=== PATIENT | male | born 1960 | race Caucasian/White ===

== ENCOUNTER 2018-07-24 17:05 | Emergency (ER) | payer OTHER, SELFPAY ==
[2018-07-24 17:07] VITALS: BP 126/73; PULSE 64; RESP 18; TEMP 36.3; O2SAT 98; BMI 24.3
[2018-07-24 17:13] VITALS: BP 126/73; PULSE 64; RESP 18; TEMP 36.3; O2SAT 98; BMI 24.3
--- NOTE | 2018-07-24 17:45 | DI.RAD.S_ITS ---
PROCEDURE: XR HIP W PEL IF DONE RT 2V INDICATIONS: fall GLF TECHNIQUE: AP pelvis with lateral view(s) of the right hip(s). COMPARISON: [facility], , SACRUM-COCCYX MIN 2 VIEWS, 08/26/2015, 12:09. [facility], , PELVIS 1 OR 2 VIEWS, 12/22/2013, 15:24. FINDINGS: Bones: No fractures or dislocations. Pelvic ring appears intact. No suspicious bony lesions. Soft tissues: The visualized bowel gas pattern is normal. No suspicious soft tissue calcifications. IMPRESSION: No acute fracture. No osseous lesion. If clinical suspicion and/or symptoms persist, further assessment with repeat plainfilms, or advanced imaging (e.g., CT, MRI, or bone scan) may be helpful for further assessment. Dictated by: Betty Gonzalez M.D. on 07/24/2018 at 18:28 Approved by: Betty Gonzalez M.D. on 07/24/2018 at 18:28
--- NOTE | 2018-07-24 17:49 | PC.NURSE ---
Patient ROM and sensation intact. Patient able to stand but cautious to bear weight. No obvious bruising or swelling noted
--- NOTE | 2018-07-24 18:18 | ED_ITS ---
HPI - Extremity Injury (Lower) <CHEYANNE Rees - Last Filed: 07/24/18 20:56> General Chief Complaint: Extremity Injury, Lower Stated Complaint: right side buttock pain from running Time Seen by Provider: 07/24/18 17:20 Source: patient and family Mode of arrival: ambulatory Limitations: no limitations History of Present Illness HPI Narrative: Patient presents with chief complaint of right hip and buttock pain while he was running this morning. He states this happened a while ago as well and he does some bruising in his hamstring but recovered. He denies any neck head or back pain. He states he did not hit anything else but more ?rolled ? when he had a sudden pain. He complains of sudden instability in his hip. He denies any numbness or tingling. Related Data Previous Rx's Medication Instructions Recorded polymyxin B sulf-trimethoprim 0 TOPICAL SEE INSTRUCTIONS #1 bot 02/01/17 [Polytrim] Allergies Allergy/AdvReac Type Severity Reaction Status Date / Time No Known Drug Allergies Allergy Verified 07/24/18 17:13 Review of Systems <RUFINO Rees - Last Filed: 07/24/18 20:56> Review of Systems GENERAL: Denies chills, fatigue, malaise, fever, sweats. HEENT: Denies sinus pain, ear pain, sore throat, difficulty swallowing, dizziness. RESPIRATORY: Denies dyspnea, cough, wheezing, hemoptysis, sputum. CARDIOVASCULAR: Denies chest pain, palpitations, orthopnea, edema, GASTROINTESTINAL: Denies nausea, vomiting, abdominal pain, diarrhea, constipation, melena. : Denies dysuria, frequency, incontinence, hematuria, urinary retention. MUSCULOSKELETAL: See HPI SKIN: Denies rash, skin lesions, or other NEUROLOGIC: Denies weakness, headache, numbness, change in speech, confusion, seizures, incoordination. PSYCHIATRIC: No concerning psychosocial issues. 12 point review of systems is negative except for those stated above Exam <CHEYANNE Rees - Last Filed: 07/24/18 20:56> Narrative Exam Narrative: GENERAL: This is a well-nourished, well-developed patient, in no acute distress HEAD: Atraumatic. Normocephalic. No temporal or scalp tenderness. EYES: Pupils equal round and reactive. Extraocular motions intact. No scleral icterus. No injection or drainage. ENT: Nose without bleeding, purulent drainage or septal hematoma. Throat without erythema, tonsillar hypertrophy or exudate. Uvula midline. Airway patent. NECK: Trachea midline. No JVD or lymphadenopathy. Supple, nontender, no meningeal signs. CARDIOVASCULAR: Regular rate and rhythm without murmurs, gallops, or rubs. RESPIRATORY: Clear to auscultation. Breath sounds equal bilaterally. No wheezes , rales, or rhonchi. GASTROINTESTINAL: Abdomen soft, non-tender, nondistended. No hepato-splenomegaly , or palpable masses. No guarding. EXTREMITIES: Strength is equal bilaterally lower extremities. Positive pedal pulses lower extremities. Right quad and hamstring muscles intact. No pain to palpation of right lower extremity. No palpable mass noted right leg. 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 He is able to pronate and supinate his right hip as well as hyperextend right hip. BACK: Nontender without deformity or crepitance. No flank tenderness. NEURO: AOx3. Stable gait. SKIN: No rash or erythema. No erythema, ecchymosis contusion or wound noted on hips or right leg. Initial Vital Signs Initial Vital Signs: Vital Signs Temperature 97.3 F L 07/24/18 17:07 Pulse Rate 64 07/24/18 17:07 Respiratory Rate 18 07/24/18 17:07 Blood Pressure 126/73 07/24/18 17:07 Pulse Oximetry 98 07/24/18 17:07 <Darren Cabello DO - Last Filed: 07/28/18 05:52> Initial Vital Signs Initial Vital Signs: Vital Signs Temperature 97.3 F L 07/24/18 17:07 Pulse Rate 64 07/24/18 17:07 Respiratory Rate 18 07/24/18 17:07 Blood Pressure 126/73 07/24/18 17:07 Pulse Oximetry 98 07/24/18 17:07 Course <CHEYANNE Rees - Last Filed: 07/24/18 20:56> Orders Ordered: ED Orders 07/24/18 17:45 XR hip w pel if done RT 2V Stat Vital Signs - 8 hr 07/24/18 17:07 07/24/18 17:13 Temperature 97.3 F L 97.3 F L Pulse Rate 64 64 Respiratory Rate 18 18 Blood Pressure 126/73 126/73 Pulse Oximetry 98 98 <Darren Cabello DO - Last Filed: 07/28/18 05:52> Orders Ordered: ED Orders 07/24/18 17:45 XR hip w pel if done RT 2V Stat Vital Signs - 8 hr 07/24/18 17:07 07/24/18 17:13 Temperature 97.3 F L 97.3 F L Pulse Rate 64 64 Respiratory Rate 18 18 Blood Pressure 126/73 126/73 Pulse Oximetry 98 98 MDM - Extremity Injury (Lower) <CHEYANNE Rees - Last Filed: 07/24/18 20:56> Imaging Data hip xray : Radiologist's impression: [address] [address] XRay Report Signed Patient: Anselmo Norris HMR#: [id number] : 1960Acct:[id number] Age/Sex: 58 / MDate of Service: 07/24/18 Loc: ED Accession Number: [id number] Procedure: XR hip w pel if done RT 2V Ordering Provider: Elizabeth Abreu PROCEDURE: XR HIP W PEL IF DONE RT 2V INDICATIONS: fall GLF TECHNIQUE: AP pelvis with lateral view(s) of the right hip(s). COMPARISON: [facility], , SACRUM-COCCYX MIN 2 VIEWS, 08/26/2015, 12:09. [facility], , PELVIS 1 OR 2 VIEWS, 12/22/2013, 15:24. FINDINGS: Bones: No fractures or dislocations. Pelvic ring appears intact. No suspicious bony lesions. Soft tissues: The visualized bowel gas pattern is normal. No suspicious soft tissue calcifications. IMPRESSION: No acute fracture. No osseous lesion. If clinical suspicion and/or symptoms persist, further assessment with repeat plainfilms, or advanced imaging (e.g., CT, MRI, or bone scan) may be helpful for further assessment. Dictated by: Betty Gonzalez M.D. on 07/24/2018 at 18:28 Approved by: Betty Gonzalez M.D. on 07/24/2018 at 18:28 [facility] Narrative Medical decision making narrative: Patient presents with chief complaint of transient right hip pain and instability upon running today. He had a negative x-ray and has an overall benign exam. He was able to ambulate around the emergency department after evaluation negative x-ray. I discussed follow up with primary care given contact information for [facility] in case he would like to follow up with them. Patient has no questions or concerns upon discharge. Steadily ambulated out of the emergency department. Discharge Plan Departure Patient Disposition: Home Clinical Impression: Acute hip pain Discharge Date/Time: 07/24/18 19:22 Interventions: ED Discharge Assessment Last Done: 07/24/18 19:21 Instructions: How To Perform RICE (Rest, Ice, Compress, Elevate), DI for Hip Pain Activity Restrictions/Additional Instructions: Your hip x-rays came back normal today. Range of motion is good and you are stable on your feet. Please follow-up with primary care provider. In the meantime please take [id number] pain medications as needed and able. Please rest and apply ice. I have given you contact information for orthopedics if you choose to follow up with them. Prescriptions: No Action polymyxin B sulf-trimethoprim [Polytrim] 10 ML drops Topical SEE INSTRUCTIONS Qty: 1 RF: 0 Referrals: [facility] [Outside] Adalberto Fortune MD [Primary Care Provider] - <Darren Cabello DO - Last Filed: 07/28/18 05:52> Cosign ED Attending Timo Attestation: I was immediately available in the department for consultation. Documentation has been reviewed. I agree with assessment and plan.
--- NOTE | 2018-07-24 19:05 | PC.NURSE ---
Patient ambulated able to bear weight. Tolerated well.
== END 2018-07-24 19:22 | disposition home or self-care (01) ==
PROVIDERS: Emergency Provider Nurse Practitioner Family; Family Provider Family Medicine; PCP Family Medicine
DX: M25.551 Pain in right hip (principal)
CPT/HCPCS: 73502; 99282; 99283

== ENCOUNTER → 2019-01-06 07:02 | Outpatient (CLI) | payer OTHER, SELFPAY ==
[2019-01-06 09:09] LABS: Alanine Aminotransferase 44 IU/L (21-72); Albumin 4.3 g/dL (3.5-5.0); Albumin Globulin Ratio 1.5 (1.0-2.8); Alkaline Phosphatase 54 U/L (38-126); Aspartate Aminotransferase 32 IU/L (17-59); BUN Creatinine Ratio 22.2 (6-22); Bilirubin Total 1.3 mg/dL (0.2-1.3); Blood Urea Nitrogen 20 mg/dL (9-20); Calcium 9.1 mg/dL (8.4-10.2); Carbon Dioxide 28 mmol/L (22-32); Chloride 104 mmol/L (98-107); Cholesterol 129 mg/dL (140-199); Estimated Glomerular Filt Rate > 60.0 mL/min (>60); Globulin 2.9 g/dL (1.7-4.1); Glucose 95 mg/dL (70-100); HDL Cholesterol 52 mg/dL (40-60); HEMOLYSIS < 15 (0-50); LDL Cholesterol Calculated 67 mg/dL (<100); Potassium 4.3 mmol/L (3.4-5.1); Sodium 139 mmol/L (137-145); Total Protein 7.2 g/dL (6.3-8.2); Triglycerides 52 mg/dL (35-150)
== END ==
PROVIDERS: PCP Family Medicine; Visit Provider Internal Medicine Cardiovascular Disease
DX: I25.10 Atherosclerotic heart disease of native coronary artery without angina pectoris (principal); E78.2 Mixed hyperlipidemia
CPT/HCPCS: 36415; 80053; 80061

== ENCOUNTER → 2019-12-13 16:14 | Outpatient (CLI) | payer OTHER, SELFPAY ==
--- NOTE | 2019-12-13 16:17 | DI.MRI.S_ITS ---
PROCEDURE: MR STROKE Pre- and post-contrast brain MRI, non-contrast brain MR angiogram, pre- and postcontrast neck MR angiogram INDICATIONS: SPEECH DISTURBANCE TECHNIQUE: Brain: Noncontrast axial T1 spin echo, axial T2 fast spin echo, sagittal and axial FLAIR, coronal T2 fast spin echo, axial gradient echo, axial diffusion and ADC through the brain. After the administration of contrast, axial 3D VIBE of the cranial vasculature and brain. Brain MRA: Non-contrast 3-D time of flight MR angiogram, with multiple ovfcbdz-abeyehbzm-hfyojykesi (MIP) reformats performed. Neck MRA: Axial and sagittal TruFISP through the neck. Coronal dynamic MR angiogram during administration of contrast in the arterial and venous phases, with 3-dimenstional aqjqrfw-ybhvankwi-zihepyjmmy (MIP) reformats constructed from subtraction images. COMPARISON: None. FINDINGS: Image quality: Excellent. BRAIN: CSF spaces: Ventricles are normal in size and shape. Basal cisterns are patent. No extra-axial fluid collections. Brain: No intracranial bleeds or mass effects. Riddle-white matter interface is normal. Diffusion weighted images show no acute ischemic insults. Brainstem appears normal. Normal intravascular flow voids are present. No abnormal intracranial enhancement. Skull and face: Calvarial marrow signal is normal. Orbits appear normal. Sinuses: Sinuses and mastoids are clear. BRAIN MR ANGIOGRAM: Anterior circulation: Intracranial internal carotid arteries are normal in size and enhancement. The flow within the paired anterior cerebral arteries is normal and symmetric. The flow within the middle cerebral arteries is normal and symmetric. The anterior communicating artery is seen. No stenoses, occlusions, or aneurysms. Posterior circulation: The visualized portions of the vertebral arteries demonstrate normal caliber, and join to form a normal appearing basilar artery. The flow within the posterior cerebral arteries is normal and symmetric. No stenoses, occlusions, or aneurysms. NECK MR ANGIOGRAM: Carotids: Great vessels demonstrate a conventional anatomy as they arise from the aortic arch. The origins of the common carotid arteries appear patent. The calibers and courses of both common carotid arteries are normal. The bifurcation regions appear normal bilaterally. The internal carotid arteries demonstrate normal course and caliber. Posterior circulation: The origins of the vertebral arteries appear patent. More superior portions of both vertebral arteries demonstrate normal course and caliber, and join to form a normal appearing basilar artery. Miscellaneous: Subclavian arteries appear patent. Pre-contrast images through the neck show no soft tissue abnormalities. IMPRESSION: BRAIN MRI: 1. No intracranial disease process. 2. No areas of acute or chronic infarction. 3. No abnormal intracranial mass or suspicious postcontrast enhancement. BRAIN MR ANGIOGRAM: Negative examination. NECK MR ANGIOGRAM: Negative examination. Dictated by: Sirena Luong MD, PhD on 12/14/2019 at 11:53 Approved by: Sirena Luong MD, PhD on 12/14/2019 at 12:00
== END ==
PROVIDERS: PCP Family Medicine; Referring Provider Family Medicine; Visit Provider Family Medicine
DX: R47.9 Unspecified speech disturbances (principal)
CPT/HCPCS: 70548; 70553; A9579

== ENCOUNTER → 2021-03-04 10:14 | Outpatient (CLI) | payer OTHER, SELFPAY ==
[2021-03-04 11:45] LABS: Alanine Aminotransferase 31 IU/L (<50); Albumin 4.2 g/dL (3.5-5.0); Albumin Globulin Ratio 1.3 (1.0-2.8); Alkaline Phosphatase 54 U/L (38-126); Aspartate Aminotransferase 32 IU/L (17-59); Bilirubin Total 0.9 mg/dL (0.2-1.3); Blood Urea Nitrogen 17 mg/dL (9-20); Carbon Dioxide 28 mmol/L (22-32); Chloride 105 mmol/L (98-107); Cholesterol 139 mg/dL (140-199); Estimated Glomerular Filt Rate > 60.0 mL/min (>60); Globulin 3.2 g/dL (1.7-4.1); Glucose 101 mg/dL (80-110); HDL Cholesterol 58 mg/dL (40-60); HEMOLYSIS < 15 (0-50); LDL Cholesterol Calculated 71 mg/dL (<100); Potassium 4.3 mmol/L (3.4-5.1); Sodium 140 mmol/L (137-145); Total Protein 7.4 g/dL (6.3-8.2); Triglycerides 52 mg/dL (35-150)
== END ==
PROVIDERS: PCP Family Medicine; Referring Provider Internal Medicine Cardiovascular Disease; Visit Provider Internal Medicine Cardiovascular Disease
DX: E78.2 Mixed hyperlipidemia (principal); I25.10 Atherosclerotic heart disease of native coronary artery without angina pectoris
CPT/HCPCS: 36415; 80053; 80061

== ENCOUNTER → 2021-11-27 14:29 | Outpatient (CLI) | payer OTHER, SELFPAY ==
--- NOTE | 2021-11-27 | DI.RAD.S_ITS ---
PROCEDURE: XR RIBS LT MIN 3V W CXR1V INDICATIONS: Pleurodynia TECHNIQUE: 2 views of the left ribs were acquired, along with a single view chest. COMPARISON: None. FINDINGS: Surgical changes and devices: None. Bones and chest wall: No fractures or dislocations. No suspicious bony lesions. Overlying soft tissues appear unremarkable. Lungs and pleura: No pleural effusions or pneumothorax. Lungs appear clear. Mediastinum: Mediastinal contours appear normal. Heart size is normal. IMPRESSION: No obvious displaced left rib fracture is seen. No acute cardiopulmonary pathology. Dictated by: Davidson Grey M.D. on 11/27/2021 at 16:13 Approved by: Davidson Grey M.D. on 11/27/2021 at 16:14
== END ==
PROVIDERS: PCP Family Medicine; Referring Provider Family Medicine; Visit Provider Family Medicine
DX: R07.81 Pleurodynia (principal)
CPT/HCPCS: 71101

== ENCOUNTER → 2022-04-16 07:28 | Outpatient (CLI) | payer OTHER, SELFPAY ==
[2022-04-16 07:58] LABS: Add Manual Diff / Slide Review NO; Basophils Absolute Auto 0 /uL (0-100); Basophils Percent Auto 0.6 % (0-2); Eosinophils Absolute Auto 100 /uL (0-450); Eosinophils Percent Auto 2.8 % (2-4); Hematocrit 42.6 % (41-53); Hemoglobin 14.4 g/dL (13.5-17.5); Lymphocytes Absolute Auto 900 /uL (1100-4500); Lymphocytes Percent Auto 21.3 % (25-40); Mean Corpuscular HGB Conc 33.9 % (30-36); Mean Corpuscular Hemoglobin 32.3 PG (26-34); Mean Corpuscular Volume 95.3 fL (80-100); Monocytes Absolute Auto 500 /uL (0-900); Monocytes Percent Auto 12.7 % (3-14); Neutrophils Absolute Auto 2600 /uL (1500-7000); Neutrophils Percent Auto 62.6 % (50-75); Platelet Count 169 X10^3/uL (150-400); Red Blood Cell Count 4.47 X10^6/uL (4.5-5.9); Red Cell Distribution Width 12.7 % (11.6-14.8); White Blood Cell Count 4.1 X10^3/uL (4.5-11.0)
[2022-04-16 08:14] LABS: Alanine Aminotransferase 36 IU/L (<50); Albumin 3.9 g/dL (3.5-5.0); Albumin Globulin Ratio 1.4 (1.0-2.8); Alkaline Phosphatase 60 U/L (38-126); Aspartate Aminotransferase 35 IU/L (17-59); BUN Creatinine Ratio 21.3 (6-22); Blood Urea Nitrogen 17 mg/dL (9-20); Calcium 8.7 mg/dL (8.4-10.2); Carbon Dioxide 27 mmol/L (22-32); Chloride 105 mmol/L (98-107); Cholesterol 147 mg/dL (140-199); Estimated Glomerular Filt Rate > 60 mL/min (>60); Globulin 2.8 g/dL (1.7-4.1); Glucose 107 mg/dL (80-110); HDL Cholesterol 57 mg/dL (40-60); HEMOLYSIS < 15 (0-50); LDL Cholesterol Calculated 81 mg/dL (<100); Potassium 4.4 mmol/L (3.4-5.1); Sodium 138 mmol/L (137-145); Total Protein 6.7 g/dL (6.3-8.2); Triglycerides 47 mg/dL (35-150)
== END ==
PROVIDERS: PCP Family Medicine; Referring Provider Physician Assistant; Visit Provider Physician Assistant
DX: I25.10 Atherosclerotic heart disease of native coronary artery without angina pectoris (principal)
CPT/HCPCS: 36415; 80053; 80061; 85025

== ENCOUNTER → 2022-07-17 07:59 | Outpatient (CLI) | payer OTHER, SELFPAY ==
--- NOTE | 2022-07-17 | DI.ECHO.S_ITS ---
[facility] +---------+ : : [address] [place] : : : : [id number] : : : : Phone: [phone]+ Echocardiogram Report + + :Name: MADHURI BERNARD Study Date: 07/17/2022 Height: 69 in : :[facility] ReadingLocation: Weight: 170 lb: : Gender: Male BSA: 1.9 m2 : :: 1960 Age: 62 yrs : :Reason For Study: CAD : :Ordering Physician: KOFI, : :CLEM Performed By: Blayne De La Rosa : :Referring: CLEM PRICE : + + Interpretation Summary The left ventricle is normal in size and wall thickness. Left ventricular systolic function is normal. The ejection fraction is estimated to be 55-60%. There are no focal wall motion abnormalities. Diastolic parameters suggest probable normal left ventricular diastolic function and normal filling pressures. The right ventricle is normal in size and function. The right ventricular systolic pressure is estimated to be at least 25 mmHg based on an estimated right atrial pressure of 3 mm Hg. Both atria are normal in size. There is no significant valvular heart disease. The aortic root is normal size. Procedure: A two-dimensional transthoracic echocardiogram with color flow and Doppler was performed. The study quality was technically adequate. Comparison is made with the echocardiogram of 07/30/2014. Left Ventricle: The left ventricle is normal in size and wall thickness. Left ventricular systolic function is normal. The ejection fraction is estimated to be 55-60%. There are no focal wall motion abnormalities. Diastolic parameters suggest probable normal left ventricular diastolic function and normal filling pressures. Right Ventricle: The right ventricle is normal in size and function. Atria: Both atria are normal in size. The interatrial septum grossly appears intact with no obvious evidence for an atrial septal defect. Mitral Valve: The mitral valve is normal in structure and function. There is trace mitral regurgitation. Aortic Valve: The aortic valve is normal in structure and function. No aortic regurgitation is present. Tricuspid Valve: The tricuspid valve is normal in structure and function. There is mild tricuspid regurgitation. The right ventricular systolic pressure is estimated to be at least 25 mmHg based on an estimated right atrial pressure of 3 mm Hg. Pulmonic Valve: The pulmonic valve is normal in structure and function. There is trace pulmonic regurgitation. There is no significant valvular heart disease. Great Vessels: The aortic root is normal size. The dimensions of the ascending aorta are normal. The IVC is of normal diameter and collapses greater than 50% with a sniff. This suggests a low right atrial pressure of 3 mm Hg. Pericardium/ Pleura There is no pericardial effusion. There is no pleural effusion. MMode/2D Measurements & Calculations LVIDd: 4.6 cm LVOT diam: 2.3 cm LVIDs: 3.1 cm Ao root diam: 3.4 cm FS: 33.2 % asc Aorta Diam: 3.1 cm IVSd: 0.89 cm LVPWd: 0.73 cm LV ly. diameter/BSA (cm/m^2): 2.4 LV sys. diameter/BSA (cm/m^2): 1.6 LA A2 area: 11.5 cm2 RA long axis: 5.7 cm LA A4 area: 17.6 cm2 RA area: 15.9 cm2 LA length (vol): 5.5 cm RA vol: 38.0 ml LA vol: 31.5 ml RA : 19.7 ml/m2 LA vol index: 16.4 ml/m2 TAPSE: 2.1 cm Doppler Measurements & Calculations Ao V2 max: 112.0 cm/sec LVOT Max Vaibhav: 76.9 cm/sec Ao V2 mean: 76.1 cm/sec LV V1 max P.4 mmHg Ao max P.0 mmHg LV V1 VTI: 16.5 cm Ao mean P.6 mmHg GINA(I,D): 3.2 cm2 Ao V2 VTI: 21.0 cm GINA(V,D): 2.8 cm2 sev ratio: 0.79 GINA indexed to BSA (cm^2/m^2): 1.7 MV E max vaibhav: 63.0 cm/sec TR max vaibhav: 235.0 cm/sec MV A max vaibhav: 59.2 cm/sec TR max P.1 mmHg MV E/A: 1.1 Med Peak E' Vaibhav: 7.1 cm/sec E/E' med: 8.8 Lat Peak E' Vaibhav: 10.2 cm/sec E/E' lat: 6.2 E/e' average: 7.5 MV dec time: 0.22 sec SV(LVOT): 66.9 ml Reading Physician:11:28 AM
[2022-07-17 12:24] LABS: Cholesterol 137 mg/dL (140-199); HDL Cholesterol 59 mg/dL (40-60); LDL Cholesterol Calculated 67 mg/dL (<100); Triglycerides 55 mg/dL (35-150)
[2022-07-19 13:18] LABS: Lipoprotein (a) 61.5 nmol/L (<75.0)
== END ==
PROVIDERS: PCP Family Medicine; Referring Provider Internal Medicine Cardiovascular Disease; Visit Provider Internal Medicine Cardiovascular Disease
DX: I07.1 Rheumatic tricuspid insufficiency (principal); I25.10 Atherosclerotic heart disease of native coronary artery without angina pectoris; R53.83 Other fatigue
CPT/HCPCS: 36415; 80061; 83695; 93306

== ENCOUNTER → 2023-07-21 16:52 | Outpatient (CLI) | payer OTHER, SELFPAY ==
[2023-07-21 17:35] LABS: Add Manual Diff / Slide Review NO; Basophils Absolute Auto 0 /uL (0-100); Basophils Percent Auto 0.4 % (0-2); Eosinophils Absolute Auto 200 /uL (0-450); Eosinophils Percent Auto 2.6 % (2-4); Hematocrit 40.7 % (41-53); Lymphocytes Absolute Auto 900 /uL (1100-4500); Lymphocytes Percent Auto 16.5 % (25-40); Mean Corpuscular HGB Conc 34.4 % (30-36); Mean Corpuscular Hemoglobin 32.6 PG (26-34); Mean Corpuscular Volume 94.5 fL (80-100); Monocytes Absolute Auto 600 /uL (0-900); Monocytes Percent Auto 9.7 % (3-14); Neutrophils Absolute Auto 4100 /uL (1500-7000); Neutrophils Percent Auto 70.8 % (50-75); Platelet Count 174 X10^3/uL (150-400); Red Blood Cell Count 4.31 X10^6/uL (4.5-5.9); Red Cell Distribution Width 13.5 % (11.6-14.8); White Blood Cell Count 5.7 X10^3/uL (4.5-11.0)
[2023-07-21 17:45] LABS: Alanine Aminotransferase 57 IU/L (<50); Albumin 4.4 g/dL (3.5-5.0); Albumin Globulin Ratio 1.4 (1.0-2.8); Alkaline Phosphatase 53 U/L (38-126); Aspartate Aminotransferase 52 IU/L (17-59); BUN Creatinine Ratio 28.9 (6-22); Blood Urea Nitrogen 22 mg/dL (9-20); Calcium 9.3 mg/dL (8.4-10.2); Carbon Dioxide 23 mmol/L (22-32); Chloride 106 mmol/L (98-107); Cholesterol 150 mg/dL (140-199); Estimated Glomerular Filt Rate > 60 mL/min (>60); Globulin 3.1 g/dL (1.7-4.1); Glucose 93 mg/dL (80-110); HDL Cholesterol 69 mg/dL (40-60); HEMOLYSIS < 15 (0-50); LDL Cholesterol Calculated 71 mg/dL (<100); Sodium 137 mmol/L (137-145); Total Protein 7.5 g/dL (6.3-8.2); Triglycerides 50 mg/dL (35-150)
== END ==
PROVIDERS: PCP Family Medicine; Referring Provider Internal Medicine Cardiovascular Disease; Visit Provider Internal Medicine Cardiovascular Disease
DX: I25.10 Atherosclerotic heart disease of native coronary artery without angina pectoris (principal)
CPT/HCPCS: 36415; 80053; 80061; 85025

== ENCOUNTER 2024-06-22 15:21 | Emergency (ER) | payer OTHER, SELFPAY ==
[2024-06-22 15:36] VITALS: BP 118/64; PULSE 76; RESP 16; TEMP 37.2; O2SAT 96; BMI 25.1
--- NOTE | 2024-06-22 15:51 | ED_ITS ---
HPI - Fever <Yaritza Ludwig PA-C - Last Filed: 06/22/24 20:23> General Chief Complaint: Fever Stated Complaint: COVID+. SOB, heavy weight on chest Time Seen by Provider: 06/22/24 15:47 History of Present Illness HPI Narrative: 63-year-old male with history of [place] 10 years ago with stent placed otherwise healthy presents with concern for being COVID positive and having a nonproductive cough and feeling like he has chest discomfort with coughing and with deep breathing, had body aches low-grade fevers and headaches as well as sore throat early on these symptoms have improved somewhat. Patient states he has actually been having some issues with his lungs for weeks to months and has noticed that he seems to be hypersensitive to smoke in the air or to find saw dust. Came in today because he is concerned that his current lung symptoms could be more than simply a reaction to his COVID infection given he has been dealing with increased coughing and what it feels like hypersensitive lungs for a few months. He states he does not feel at all like this is cardiac related as his discomfort is specifically with coughing or to some degree with breathing. He describes it as a congested somewhat heavy feeling in the front of his chest that is present with coughing and breathing. 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 Patient originally developed a sore throat on Wednesday night and by Wednesday was feeling body aches and developing a cough. He has tried [id number]-[id number] cough medicine once with limited relief. Feels congested in his chest as if he needs to cough but nothing really comes up he tested positive for COVID 2 days ago on Wednesday morning. Patient states he does not want to have workup and evaluation for cardiac today as he feels this is not what is going. Denies any shortness of breath, chest pain with exertion, radiation of his pain to his back neck or arms, nausea, vomiting, dizziness, palpitations or other symptoms. Related Data Previous Rx's Medication Instructions Recorded polymyxin B sulfate 10,000 0 topical SEE INSTRUCTIONS ##1 02/01/17 unit-trimethoprim 1 mg/mL eye drops (Polytrim) benzonatate 100 mg capsule 100 mg PO TID PRN cough #21 caps 06/22/24 prednisone 20 mg tablet 40 mg (2 x 20 mg) PO DAILY 5 days 06/22/24 #10 tabs Allergies Allergy/AdvReac Type Severity Reaction Status Date / Time No Known Drug Allergies Allergy Verified 07/24/18 17:13 Review of Systems <Yaritza Ludwig PA-C - Last Filed: 06/22/24 20:23> Review of Systems Narrative: See HPI Patient History <Yaritza Ludwig PA-C - Last Filed: 06/22/24 20:23> Social History Smoking Status: Never smoker Smoking Status: Never smoker alcohol intake frequency: holidays/special occasions only Substance Use Type: marijuana Exam <Yaritza Ludwig PA-C - Last Filed: 06/22/24 20:23> Narrative Exam Narrative: GENERAL: 63 year old patient appears stated age. Well-developed patient, in mild distress. HEAD: Atraumatic. Normocephalic. EYES: Pupils equal round and reactive. Extraocular motions intact. No scleral icterus. No injection or drainage. ENT: Nose without bleeding, purulent drainage. Throat with mild erythema, without tonsillar hypertrophy or exudate. Airway patent. NECK: Trachea midline. Non tender CARDIOVASCULAR: Regular rate and rhythm without murmurs, gallops, or rubs. RESPIRATORY: Clear to auscultation. Breath sounds equal bilaterally. No wheezes, rales, or rhonchi. GASTROINTESTINAL: Abdomen nondistended. EXTREMITIES: No edema or joint tenderness. BACK: Nontender without deformity or crepitance. No flank tenderness. NEURO: AOx3. SKIN: No rash or erythema of visible areas Initial Vital Signs Initial Vital Signs: Vital Signs Temperature 98.9 F 06/22/24 15:36 Pulse Rate 76 06/22/24 15:36 Respiratory Rate 16 06/22/24 15:36 Blood Pressure 118/64 06/22/24 15:36 Pulse Oximetry 96 06/22/24 15:36 Oxygen Delivery Method Room Air 06/22/24 15:36 <Татьяна Joyner DO - Last Filed: 06/23/24 10:28> Initial Vital Signs Initial Vital Signs: Vital Signs Temperature 98.9 F 06/22/24 15:36 Pulse Rate 76 06/22/24 15:36 Respiratory Rate 16 06/22/24 15:36 Blood Pressure 118/64 06/22/24 15:36 Pulse Oximetry 96 06/22/24 15:36 Oxygen Delivery Method Room Air 06/22/24 15:36 Course <Yaritza Ludwig PA-C - Last Filed: 06/22/24 20:23> Orders Ordered: ED Orders 06/22/24 16:13 Chest [XR chest 2V] Stat Vital Signs Vital signs: Vital Signs - 8 hr 06/22/24 15:36 06/22/24 18:00 Temperature 98.9 F Pulse Rate 76 75 Respiratory Rate 16 16 Blood Pressure 118/64 118/65 Pulse Oximetry 96 96 Oxygen Delivery Method Room Air Room Air <Татьяна Joyner DO - Last Filed: 06/23/24 10:28> Orders Ordered: ED Orders 06/22/24 16:13 Chest [XR chest 2V] Stat Vital Signs Vital signs: Vital Signs - 8 hr 06/22/24 15:36 06/22/24 18:00 Temperature 98.9 F Pulse Rate 76 75 Respiratory Rate 16 16 Blood Pressure 118/64 118/65 Pulse Oximetry 96 96 Oxygen Delivery Method Room Air Room Air MDM - Fever <Yaritza Ludwig PA-C - Last Filed: 06/22/24 20:23> Differential Diagnosis Differential diagnosis: Likely community acquired pneumonia, viral infection and other (COVID-19, bronchitis) Medical Records Attestation: I reviewed the patient's medical records. Imaging Data Extremity x-ray #1: My Impression: Agree with Radiology interpretation Radiologist's Impression: [address] [address] XRay Report Signed Patient: Anselmo Norris MR#: [id number] : 1960 Acct:[id number] Age/Sex: 63 / M Date of Service: 06/22/24 Loc: ED Accession Number: [id number] Procedure: XR chest 2V Ordering Provider: Yaritza Ludwig PA-C PROCEDURE: XR CHEST 2V INDICATIONS: COVID, chest pain w/coughing/breathing TECHNIQUE: 2 views of the chest were acquired. COMPARISON: None. FINDINGS: Surgical changes and devices: None. Lungs and pleura: Lungs are clear. No pleural effusions or pneumothorax. Mediastinum: Mediastinal contours are normal. Heart size is normal. Bones and chest wall: No suspicious bony abnormalities. Soft tissues appear unremarkable. IMPRESSION: No acute cardiopulmonary abnormality is seen. Dictated by: Kye Holley M.D. on 06/22/2024 at 17:19 Approved by: Kye Holley M.D. on 06/22/2024 at 17:19 Treatment and disposition Shared decision making:: Shared decision-making used to determine plan for evaluation today in the emergency department and patient declined cardiac workup/evaluation MDM Narrative Medical decision making narrative: 63-year-old male with history of [place] with stent, otherwise healthy presents with COVID positive with a home test for 2 days and 4-5 days of URI symptoms with concern for chest discomfort with coughing and breathing and a sensation he is unable to cough out what is in his chest. Also concern for somewhat chronic intermittent problems with reaction to smoke or sawdust in his environment. We discussed pursuing cardiac workup however patient declines this, I think this is reasonable as his symptoms are more consistent with respiratory and he has not having any constant persistent pain or other symptoms suggesting cardiac etiology. Chest x-ray returns unremarkable. Patient does have clear lung sounds today and I have low suspicion for bacterial pneumonia. His vital signs are unremarkable and he is counseled to consider seeing pulmonology for further evaluation of his long-term respiratory symptoms, consider taking a OTC allergy medication regularly for a few weeks to see if that improves his lung symptoms when he is around smoke or saw dust. Also short course of prednisone for inflammation as I suspect he has a bronchitis given he has some chest discomfort with coughing and deep breathing. Antibiotics are deferred given he is COVID positive and x-ray does not suggest bacterial pneumonia, nor do his symptoms or history. Return precautions provided, follow-up plan discussed, all questions answered. Discharge Plan Departure Patient Disposition: Home Clinical Impression: COVID-19, Bronchitis Activity Restrictions/Additional Instructions: *You have been diagnosed with [COVID-19, likely bronchitis] *What to do: *Please continue to take your regular medications as directed. [ 1] New medication prescriptions sent to your pharmacy: [Prednisone] [ ] New medication written as a paper prescription [ ] No new medications given *Please follow up with your primary care provider in 2-3 days, call for an appointment. Let them know you were seen in the Emergency Department and that we ask that you be seen in follow up. We will electronically transmit a record of today's note if your PCP is in our system. After discussion today you prefer not to pursue any cardiac workup, your symptoms do not sound consistent with a cardiac problem however you do have a history of a myocardial infarction so it is very important if you feel your chest pain is becoming persistent or you feel short of breath with exertion or any other new symptoms of concern that could potentially be cardiac make sure you get re-evaluated and have further evaluation done. Today we did a chest x-ray and this looked good. I recommend you consider seeing pulmonology as you state you have been dealing with what feels kind of like reactive or allergic-type airway symptoms in certain environments such as with sawdust or smoke for the past few months. A decorating machine tender will be better able to evaluate this. You do have COVID per your positive home test a few days ago, we did not repeat this today in the emergency department. We did discuss Paxlovid however you declined this, I think this is reasonable as your vitals looked great and your symptoms are mild and you are vaccinated. We also discussed an inhaler however you have declined this today, I do think the prednisone will likely help with your symptoms but as we discussed you may want to consider trying Zyrtec or Claritin as a daily antihistamine for the next few weeks to see if this improves your respiratory symptoms. You can of course do [id number]-[id number] cough medicine I am also prescribing another cough medicine for you that may be helpful. *If you do not have a primary care provider please contact the [facility] Resource line at [phone]. They will ask some questions about your medical history and help get you set up with a doctor in the community. *Return to Emergency Department if you should have any new, worsening or concerning symptoms, such as [fever greater than 101 F, shaking chills, worsening pain, persistent vomiting or other bothersome symptoms] Prescriptions: New prednisone 20 mg tablet 40 mg PO DAILY 5 Days Qty: 10 0RF benzonatate 100 mg capsule 100 mg PO TID PRN (Reason: cough) Qty: 21 0RF No Action polymyxin B sulf-trimethoprim [Polytrim] 10 ML drops 0 Topical SEE INSTRUCTIONS Qty: 1 0RF Referrals: Adalberto Fortune MD [Primary Care Provider] - Stand Alone Forms: Patient Portal/API ED Sign-out <Татьяна Joyner DO - Last Filed: 06/23/24 10:28> Cosign ED Attending Cosignature Attestation: I was available for consultation.
--- NOTE | 2024-06-22 16:13 | DI.RAD.S_ITS ---
PROCEDURE: XR CHEST 2V INDICATIONS: COVID, chest pain w/coughing/breathing TECHNIQUE: 2 views of the chest were acquired. COMPARISON: None. FINDINGS: Surgical changes and devices: None. Lungs and pleura: Lungs are clear. No pleural effusions or pneumothorax. Mediastinum: Mediastinal contours are normal. Heart size is normal. Bones and chest wall: No suspicious bony abnormalities. Soft tissues appear unremarkable. IMPRESSION: No acute cardiopulmonary abnormality is seen. Dictated by: Kye Holley M.D. on 06/22/2024 at 17:19 Approved by: Kye Holley M.D. on 06/22/2024 at 17:19
[2024-06-22 18:00] VITALS: BP 118/65; PULSE 75; RESP 16; O2SAT 96
== END 2024-06-22 18:00 | disposition home or self-care (01) ==
PROVIDERS: Emergency Provider Student in an Organized Health Care Education/Training Program; PCP Family Medicine
DX: U07.1 COVID-19 (principal); J40 Bronchitis, not specified as acute or chronic; I25.2 Old myocardial infarction; Z95.5 Presence of coronary angioplasty implant and graft
CPT/HCPCS: 71046; 99283

== ENCOUNTER → 2024-08-26 08:13 | Outpatient (CLI) | payer OTHER, SELFPAY ==
[2024-08-26 09:05] LABS: Add Manual Diff / Slide Review NO; Basophils Absolute Auto 0 /uL (0-100); Basophils Percent Auto 0.5 % (0-2); Eosinophils Absolute Auto 100 /uL (0-450); Eosinophils Percent Auto 1.5 % (2-4); Hematocrit 43.2 % (41-53); Hemoglobin 14.8 g/dL (13.5-17.5); Lymphocytes Absolute Auto 1000 /uL (1100-4500); Lymphocytes Percent Auto 19.6 % (25-40); Mean Corpuscular HGB Conc 34.3 % (30-36); Mean Corpuscular Hemoglobin 32.9 PG (26-34); Mean Corpuscular Volume 95.9 fL (80-100); Monocytes Absolute Auto 600 /uL (0-900); Monocytes Percent Auto 11.1 % (3-14); Neutrophils Absolute Auto 3400 /uL (1500-7000); Neutrophils Percent Auto 67.3 % (50-75); Platelet Count 172 X10^3/uL (150-400); Red Blood Cell Count 4.51 X10^6/uL (4.5-5.9); Red Cell Distribution Width 13.3 % (11.6-14.8)
[2024-08-26 10:05] LABS: Alanine Aminotransferase 70 IU/L (<50); Albumin 4.1 g/dL (3.5-5.0); Albumin Globulin Ratio 1.4 (1.0-2.8); Alkaline Phosphatase 45 U/L (38-126); Aspartate Aminotransferase 54 IU/L (17-59); BUN Creatinine Ratio 37.1 (6-22); Bilirubin Total 0.9 mg/dL (0.2-1.3); Blood Urea Nitrogen 26 mg/dL (9-20); Calcium 9.4 mg/dL (8.4-10.2); Carbon Dioxide 28 mmol/L (22-32); Chloride 107 mmol/L (98-107); Cholesterol 155 mg/dL (140-199); Estimated Glomerular Filt Rate > 60 mL/min (>60); Globulin 2.9 g/dL (1.7-4.1); Glucose 101 mg/dL (80-110); HDL Cholesterol 68 mg/dL (40-60); HEMOLYSIS < 15 (0-50); LDL Cholesterol Calculated 76 mg/dL (<100); Potassium 4.3 mmol/L (3.4-5.1); Sodium 137 mmol/L (137-145); Triglycerides 56 mg/dL (35-150)
== END ==
PROVIDERS: PCP Family Medicine; Referring Provider Internal Medicine Cardiovascular Disease; Visit Provider Internal Medicine Cardiovascular Disease
DX: I25.10 Atherosclerotic heart disease of native coronary artery without angina pectoris (principal)
CPT/HCPCS: 36415; 80053; 80061; 85025

== ENCOUNTER → 2024-12-13 07:16 | Outpatient (CLI) | payer OTHER, SELFPAY ==
--- NOTE | 2024-12-13 07:17 | DI.MRI.S_ITS ---
PROCEDURE: MR HEAD/BRAIN WO/W CON INDICATIONS: balance disorder TECHNIQUE: Noncontrast axial T1 spin echo, axial T2 fast spin echo, sagittal and axial FLAIR, coronal T2 fast spin echo, axial gradient echo, axial diffusion and ADC through the brain. After the administration of contrast, axial and coronal and sagittal T1 spin echo with fat saturation through the brain. COMPARISON: [facility], MR, MR STROKE, 12/13/2019, 16:28. FINDINGS: Image quality: Excellent. CSF spaces: Basal cisterns are patent. No extra-axial fluid collections. Ventricles are normal in size and shape. Brain: No midline shift. No intracranial bleeds or masses. No abnormal intracranial enhancement. There is cerebral volume loss for age. There is periventricular white matter chronic small vessel ischemic change. The brainstem appears normal. Diffusion-weighted images demonstrate no acute infarct. No chronic ischemic insults. Normal intravascular flow voids are present. Skull and face: Calvarial marrow is normal in signal. Orbits appear normal. Sinuses: Sinuses and mastoids appear clear. IMPRESSION: No imaging explanation is found for this patient's presenting symptoms. No masses or abnormal enhancement can be seen. No findings of acute or subacute infarction can be seen. No prior territorial infarct can be seen. Dictated by: Golden Miller M.D. on 12/13/2024 at 10:36 Approved by: Golden Miller M.D. on 12/13/2024 at 10:41
== END ==
PROVIDERS: PCP Family Medicine; Referring Provider Family Medicine; Visit Provider Family Medicine
DX: H83.03 Labyrinthitis, bilateral (principal); H55.00 Unspecified nystagmus; R26.89 Other abnormalities of gait and mobility
CPT/HCPCS: 70553; A9579

== ENCOUNTER 2025-08-02 09:54 | Day surgery (SDC) | payer OTHER, SELFPAY ==
--- NOTE | 2025-08-02 06:28 | P.HP_ITS ---
History of Present Illness History of Present Illness Date Patient Seen: 08/02/25 Time Patient Seen: 06:28 Chief complaint: AKC Narrative: Patient presents for screening colonoscopy today. Meds Home Medications and Allergies Home Medications ?Medication ?Instructions ?Recorded ?Confirmed ?Type polymyxin B sulfate 10,000 0 topical SEE INSTRUCTIONS ##1 02/01/17 Rx unit-trimethoprim 1 mg/mL eye drops (Polytrim) benzonatate 100 mg capsule 100 mg PO TID PRN cough #21 caps 06/22/24 Rx sodium,potassium,mag sulfates 17.5 See Rx Instructions PO .COMPLEX 06/28/25 Rx gram-3.13 gram-1.6 gram oral soln #354 mL (Suprep Bowel Prep Kit) Allergies Allergy/AdvReac Type Severity Reaction Status Date / Time No Known Drug Allergies Allergy Verified 07/24/18 17:13 Exam Narrative Exam Narrative: Const General: healthy appearing, comfortable and no acute distress Orientation: alert and oriented x3 HENMT Ears: hearing grossly normal bilaterally Eyes Visual Santo: normal visual santo by confrontation Conjunctivae: conjunctivae normal Sclera: sclerae normal EOM: EOM intact bilaterally Resp Effort & Inspection: normal respiratory effort and able to speak in complete sentences Cardio Rate: regular rate GI Palpation: soft (NT) Extrem General: no pedal edema and no calf tenderness Assessment & Plan Assessment and plan (1) Encounter for screening colonoscopy: Status: Acute Plan Plan screening colonoscopy, possible biopsy. The risks, benefits and options regarding the procedure were explained to the patient in detail. Risk discussion included but not limited to: bleeding, perforation, missed lesion, unable to reach cecum. The patient was encouraged to ask questions and they were answered to their satisfaction. The patient understands and is agreeable to proceed. Time-Based Coding :: [TOTAL MINUTES] spent with patient and on the chart (including review of chart, obtaining history, exam, reviewing outside data, placing orders, documenting exam and treatment plan, and counseling patient) on [DATE]. [employer] Document charge(s): Yes Charge Codes Inpatient/observation care including admit and discharge same day: [id number]
[2025-08-02 10:07] VITALS: BP 150/84; PULSE 75; RESP 15; TEMP 36.3; O2SAT 95
[2025-08-02] MEDS: LACTATED RINGERS 1,000 ML 100 ML IV (10:19)
--- NOTE | 2025-08-02 11:14 | P.OP.COLON_ITS ---
Operative Date/Time/Diagnoses Date of procedure: 08/02/25 Time of procedure: 11:14 Pre-op diagnosis: Screening colonoscopy Post-op diagnosis: same Procedure & Clinicians Study performed: Screening colonoscopy Same procedure(s) as scheduled: Yes Indications: Screening colonoscopy Surgeon: Gerald Garcia Anesthesia Type: MAC +/- Procedure Notes SCOAP/Timeout: Procedure Procedure in detail: Colonoscopy Patient placed in left lateral recumbent position. Time out was performed. Procedural sedation was administered by anesthesia. Examination began with a thorough inspection of the perianal area. There was no evidence of fissures, fistulae, external hemorrhoids or cutaneous malignancy. The colonoscope was then placed into the rectum and the lumen was insufflated with carbon dioxide. The scope was carefully advanced forward. Ultimately the cecum was intubated and confirmed by identification of the ileocecal valve, the appendiceal orifice and the confluence of the taenia. The scope was then slowly withdrawn examining the colon thoroughly in all directions. In the rectum, retroflexion of the scope was performed for inspection of the distal rectum and anal canal. ?Significant colonoscopy findings: ?1. Quality of the preparation-good, [place] 2-3, improved with irrigation/suction ?2. Sigmoid diverticulosis, otherwise, normal screening colonoscopy, no polyps, strictures, mass Scope withdrawal time: 6 minutes Specimen(s): none sent Estimated Blood Loss: 5 Complications: none Impression: Normal screening colonoscopy today other than sigmoid diverticulosis Post-procedure Recommendations: Colonoscopy in 10 years Plan for aftercare: PACU then home Disposition: PACU
[2025-08-02 11:15] VITALS: BP 105/58; PULSE 66; RESP 17; TEMP 36.5; O2SAT 98
[2025-08-02 11:20] VITALS: BP 118/66; PULSE 65; RESP 18; O2SAT 98
[2025-08-02 11:26] VITALS: BP 119/74; PULSE 78; RESP 16; O2SAT 22
== END 2025-08-02 11:43 | disposition home or self-care (01) ==
PROVIDERS: PCP Family Medicine; Referring Provider Surgery; Visit Provider Surgery
PROC: 0DJD8ZZ Inspection of Lower Intestinal Tract, Via Natural or Artificial Opening Endoscopic (ICD-10-PCS; CPT 45378; principal; 2025-08-02 11:00)
DX: Z12.11 Encounter for screening for malignant neoplasm of colon (principal); K57.30 Diverticulosis of large intestine without perforation or abscess without bleeding
CPT/HCPCS: 45378; J2704; J7120

== ENCOUNTER → 2025-08-27 08:40 | Outpatient (CLI) | payer OTHER, MEDICARE, SELFPAY ==
[2025-08-27 09:38] LABS: Hematocrit 43.3 % (41-53); Hemoglobin 14.7 g/dL (13.5-17.5); Mean Corpuscular HGB Conc 34.0 % (30-36); Mean Corpuscular Hemoglobin 32.2 PG (26-34); Mean Corpuscular Volume 94.5 fL (80-100); Platelet Count 206 X10^3/uL (150-400)
[2025-08-27 11:00] LABS: Alanine Aminotransferase 62 IU/L (<50); Albumin 4.4 g/dL (3.5-5.0); Albumin Globulin Ratio 1.5 (1.0-2.8); Alkaline Phosphatase 58 U/L (38-126); Blood Urea Nitrogen 21 mg/dL (9-20); Calcium 9.2 mg/dL (8.4-10.2); Carbon Dioxide 23 mmol/L (22-32); Chloride 107 mmol/L (98-107); Cholesterol 165 mg/dL (140-199); Estimated Glomerular Filt Rate > 60 mL/min (>60); Globulin 3.0 g/dL (1.7-4.1); Glucose 107 mg/dL (70-99); HDL Cholesterol 72 mg/dL (40-60); HEMOLYSIS < 15 (0-50); Potassium 4.5 mmol/L (3.4-5.1); Sodium 140 mmol/L (137-145); Total Protein 7.4 g/dL (6.3-8.2); Triglycerides 54 mg/dL (35-150)
== END ==
PROVIDERS: PCP Family Medicine; Referring Provider Family Medicine; Visit Provider Internal Medicine Cardiovascular Disease
DX: I25.10 Atherosclerotic heart disease of native coronary artery without angina pectoris (principal)
CPT/HCPCS: 36415; 80053; 80061; 85027